=== PATIENT | male | born 1965 | race Caucasian/White ===

== ENCOUNTER 2025-03-10 10:10 | Observation (INO) | payer BC, SELFPAY ==
[2025-03-10] VITALS (14 sets, daily range): BP systolic 127–155; BP diastolic 59–96; BMI 40.0; BMI 38.9
[2025-03-10 08:04] LABS: % Basophils 0.7 % (0-2); % Eosinophils 2.5 % (0-6); % Immature Granulocytes 0.3 % (0-0.5); % Lymphocytes 25.7 % (20.5-51.1); % Monocytes 9.2 % (1.7-9.3); % Neutrophils 61.6 % (42.2-75.2); ALT (SGPT) 18 U/L (0-50); AST (SGOT) 19 U/L (17-59); Absolute Basophils 0.1 10^3/uL (0-0.2); Absolute Eosinophils 0.2 10^3/uL (0-0.7); Absolute Monocytes 0.7 10^3/uL (0.1-0.6); Absolute Neutrophils 4.7 10^3/uL (1.4-6.5); Albumin 4.2 g/dl (3.5-5.0); Alkaline Phosphatase 76 U/L (38-126); Blood Urea Nitrogen 19 mg/dl (9-20); Calcium 8.8 mg/dl (8.4-10.2); Carbon Dioxide 20 mmol/L (22-30); Chloride 111 mmol/L (98-107); Estimated Creatinine Clearance > 125 ml/min; Glucose 169 mg/dl (70-99); Hematocrit 24.6 % (39.0-52.0); Hemoglobin 6.6 g/dL (13.0-18.0); Mean Corp Hgb Conc. 26.8 g/dL (33.0-37.0); Mean Corpuscular Hgb 17.5 pg (27.0-31.0); Mean Corpuscular Volume 65.1 fL (80.0-94.0); Mean Platelet Volume 10.1 fL (7.4-10.4); Nucleated Red Blood Cells % 0.4 % (-); Platelet Count 277 10^3/uL (130-400); Potassium 4.1 mmol/L (3.5-5.1); Red Blood Cell Count 3.78 10^6/uL (4.70-6.10); Red Cell Dist. Width 20.7 % (11.5-14.5); Sodium 142 mmol/L (135-145); Total Protein 6.7 g/dl (6.3-8.2); White Blood Cell Count 7.6 10^3/uL (4.8-10.8); eGFR > 60.00
[2025-03-10 08:15] LABS: Troponin I < 0.012 ng/ml
[2025-03-10 08:22] LABS: Anisocytosis 1+; Normal RBC Morphology No
[2025-03-10 08:23] LABS: Hypochromasia 1+; Ovalocytes Slight
--- NOTE | 2025-03-10 08:47 | ED.GENMED ---
History of Present Illness
<Farhan Cruz PA-C - Last Filed: 03/10/25 12:15>
General
Chief Complaint: Breathing Problem
Source: patient
Time Seen by Provider: 03/10/25 08:16
History of Present Illness
History of Present Illness:
59-year-old male with past medical history of insulin-dependent diabetes, recently treated for a left lower lobe pneumonia presenting to the emergency department for gradually worsening exertional dyspnea over the last month companied with
intermittent chest discomfort with both symptoms resolving at rest. Patient notes that he has had intermittent bright red blood intermixed with his stool which he has had often but this was attributed to hemorrhoidal bleed. Patient states no other
symptoms and at this time is asymptomatic. Currently denying any shortness of breath, lightheadedness, dizziness, syncopal episodes, abdominal pain, nausea, vomiting, abnormal bruising, fevers or infectious symptoms, abnormal weight loss or gain.
Social history noncontributory. 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 He notes that 4 years ago he had a colonoscopy for the first time, no abnormalities found, scheduled to undergo his next colonoscopy within the next few
weeks.
Past History
<Farhan Cruz PA-C - Last Filed: 03/10/25 12:15>
Past History
ED Past Medical History: IDDM
ED Past Surgical History: Orthopedic and Other
Social History
Tobacco: Non-smoker
Alcohol: None
Drug: None
Living: alone
Review of Systems
<Farhan Cruz PA-C - Last Filed: 03/10/25 12:15>
Review of Systems
All Other Systems: ROS reviewed and negative except as documented in HPI and ROS
Phy Exam
<Farhan Cruz PA-C - Last Filed: 03/10/25 12:15>
Physical Exam
Physical Exam:
GENERAL: Alert , in no apparent distress
EYE: clear conjunctiva b/l
HEAD: NCAT
ENT: o/p clr, mmm.
CARDIAC: Regular rate and rhythm .
LUNGS: Clear breath sounds bilaterally, no acute respiratory distress, no wheezes/rales/rhonchi
ABDOMEN: Soft, without focal tenderness, no r/g, no cvat
RECTAL EXAM: Light brown stool, heme-negative
NEUROLOGICAL: Alert and oriented
SKIN: Warm and dry, skin intact.
MUSCULOSKELETAL: No edema, well perfused.
PSYCH: Normal and appropriate interaction.
Scores
<Farhan Cruz PA-C - Last Filed: 03/10/25 12:15>
Heart Failure Risk
Heart Failure Risk Score: Not Applicable
Heart Score for Chest Pain Patients
STEMI patient?: Not applicable
Withdrawal Assessment of Alcohol
Withdrawal Assessment Completed?: Not applicable
Course
<Farhan Cruz PA-C - Last Filed: 03/10/25 12:15>
Orders/Labs/Results
Orders:
Orders
03/10/25 07:36
EKG [Electrocardiogram (*1)] Urgent
Reason for Study: Chest Pain
EKG- Treatment ONCE
CR Chest - 2 Views Urgent
Comment:
Reason For Exam: suspected infection
03/10/25 07:41
Complete Blood Count/With Diff Urgent
Comprehensive Metabolic Panel Urgent
Ferritin Urgent
Folate Urgent
Iron Urgent
Reticulocyte Count Urgent
Total Iron Binding Urgent
Troponin I Urgent
03/10/25 08:14
Type+Screen Urgent
03/10/25 08:43
Blood Bank Products [* Blood Bank Products] Urgent
Blood Bank Products: *Packed RBC Leuko(PRBC's)
Quantity: 2
Transfuse Today: Yes
Reason: Anemia
03/10/25 08:52
ABO2 Urgent
BBK Wristband Number:
Associate notified that ABO2 has been ordered: HERRERA-ER
Date: 03/10/25
Time: 08:29
Water Regulator And Valve Repairer ID: [id number]
03/10/25 09:07
Add On- LAB Urgent
Tests Added?: ferritin, iron, TIBC, %sat, B12, folate, retic count
03/10/25 09:39
Admit/Transfer Patient As Directed
Co-Sign Provider:
Level of Care: Observation services
Assign to:: Telemetry
Physician / Group: hospitalist-Kirsten
Diagnosis: chest pressure--anemia
Reason for Telemetry: Chest Pain syndromes
Date to Stop Telemetry: 03/12/25
Time to Stop Telemetry: 11:00
03/10/25 09:40
PRN Pain Medication Management As Directed
May give lesser potent ordered pain med per pt: Yes
preference::
Protocol:: Medication orders for pain may be administered in a
manner that supports deferring to patient preference
when the pt is:
- Requesting an ordered lesser potent pain medication.
Least to most potent pain medications are defined
as: acetaminophen < NSAID < tramadol < opioids
(morphine, oxycodone, hydromorphone).
- Requesting a lesser dose of the same medication IF
ORDERED.
- Requesting a less intrusive route of administration
if both routes are prescribed by the provider (PO <
IV).
03/10/25 09:42
Code Status As Directed
Resuscitation Status: Full Code
03/10/25 Lunch
2000 calorie (17 carb) Diabetic
At Your Request: Full Participation
Does patient need a safe tray?: No
Pantoprazole [Protonix] 40 mg PO DAILY
03/10/25 11:20
Electrocardiogram (*1) Q6H
Reason for Study: Chest Pain
Comment: at admission and Q3H for total of 3, to be done with each troponin
Dextrose 50%-Water [Dextrose 50% Syringe] 12.5 grams IV [id number] PRN
FOLic ACID [Folvite] 1 mg PO DAILY
Furosemide [Lasix] 40 mg PO BID
Glucagon [GlucaGen] 1 mg IM PRN PRN
Lisinopril [Zestril] 20 mg PO DAILY
METFORMIN HCl [Glucophage] 1,000 mg PO BID AT 0800,1700
03/10/25 11:20
CARDIOLOGY CONSULT Routine
Consulting Provider: Philomena Lassiter
Was physician already notified: Yes
Activity As Directed
Activity Level: Out of Bed-Early Mobility
Bedside Glucose Monitoring As Directed
Frequency: AC&HS
Additional Instructions:: Change to q6h if pt on TPN, tube feeding or not eating
INT (Intravenous Needle Therapy) As Directed
Comment: maintain peripheral IV access
Intake/ Output As Directed
Frequency: Per unit guidelines
Pneumatic Compression Sleeves As Directed
Type: Knee high
Vital Signs As Directed
Frequency: q4h
Weight As Directed
Frequency: Daily
DX Deep Vein Thrombosis Video Routine
03/10/25 11:30
Insulin Aspart Corrective Mod [Novolog Flexpen-Moderate Resistance] See Protocol SC AC
03/10/25 11:37
Glycohemoglobin (HgbA1c) Routine
Troponin I Q3H
Comment: at admit & Q3H for 3 total including ED draws, obtain ECG with each level
03/10/25 11:45
Dapagliflozin [Farxiga] 10 mg PO DAILY
03/10/25 14:20
Troponin I Q3H
Comment: at admit & Q3H for 3 total including ED draws, obtain ECG with each level
03/10/25 17:20
Electrocardiogram (*1) Q6H
Reason for Study: Chest Pain
Comment: at admission and Q3H for total of 3, to be done with each troponin
Troponin I Q3H
Comment: at admit & Q3H for 3 total including ED draws, obtain ECG with each level
03/10/25 22:00
insulin glargine [Lantus Solostar U-100 Insulin] 26 unit SC HS
03/10/25 23:20
Electrocardiogram (*1) Q6H
Reason for Study: Chest Pain
Comment: at admission and Q3H for total of 3, to be done with each troponin
03/11/25 06:00
Cardiovascular Evaluation IN AM
Complete Blood Count/No Diff IN AM
Comprehensive Metabolic Panel IN AM
Glycohemoglobin (HgbA1c) IN AM
03/11/25 08:00
Rosuvastatin Calcium [Crestor] 10 mg PO DAILY
03/12/25 11:00
DC Protocol for Telemetry ONCE
Abnormal Lab Results
03/10/25 03/10/25
07:41 08:14
RBC 3.78 L 10^6/uL
(4.70-6.10)
Hgb 6.6 L* g/dL
(13.0-18.0)
Hct 24.6 L %
(39.0-52.0)
MCV 65.1 L fL
(80.0-94.0)
MCH 17.5 L pg
(27.0-31.0)
MCHC 26.8 L g/dL
(33.0-37.0)
RDW 20.7 H %
(11.5-14.5)
Absolute Monos (auto) 0.7 H 10^3/uL
(0.1-0.6)
Chloride 111 H mmol/L
(98-107)
Carbon Dioxide 20 L mmol/L
(22-30)
Glucose 169 H mg/dl
(70-99)
Ferritin 3.7 L ng/ml
(17.9-464.0)
Crossmatch IS Only See Detail
03/10/25 07:41
03/10/25 07:41
Vital Signs
Initial and Last Documented VS:
Initial Vital Signs
Pulse
90
03/10/25 07:31
Last Documented Vital Signs
Temp Pulse Resp BP Pulse Ox
98.4 F 89 18 138/77 97
03/10/25 12:11 03/10/25 12:11 03/10/25 12:11 03/10/25 12:11 03/10/25 12:11
<Hiram Wang, DO - Last Filed: 03/10/25 08:54>
Orders/Labs/Results
Orders:
Orders
03/10/25 07:36
EKG [Electrocardiogram (*1)] Urgent
Reason for Study: Chest Pain
EKG- Treatment ONCE
CR Chest - 2 Views Urgent
Comment:
Reason For Exam: suspected infection
03/10/25 07:41
Complete Blood Count/With Diff Urgent
Comprehensive Metabolic Panel Urgent
Ferritin Urgent
Folate Urgent
Iron Urgent
Reticulocyte Count Urgent
Total Iron Binding Urgent
Troponin I Urgent
03/10/25 08:14
Type+Screen Urgent
03/10/25 08:43
Blood Bank Products [* Blood Bank Products] Urgent
Blood Bank Products: *Packed RBC Leuko(PRBC's)
Quantity: 2
Transfuse Today: Yes
Reason: Anemia
03/10/25 08:52
ABO2 Urgent
BBK Wristband Number:
Associate notified that ABO2 has been ordered: HERRERA-ER
Date: 03/10/25
Time: 08:29
Water Regulator And Valve Repairer ID: [id number]
03/10/25 09:07
Add On- LAB Urgent
Tests Added?: ferritin, iron, TIBC, %sat, B12, folate, retic count
03/10/25 09:39
Admit/Transfer Patient As Directed
Co-Sign Provider:
Level of Care: Observation services
Assign to:: Telemetry
Physician / Group: hospitalist-Kirsten
Diagnosis: chest pressure--anemia
Reason for Telemetry: Chest Pain syndromes
Date to Stop Telemetry: 03/12/25
Time to Stop Telemetry: 11:00
03/10/25 09:40
PRN Pain Medication Management As Directed
May give lesser potent ordered pain med per pt: Yes
preference::
Protocol:: Medication orders for pain may be administered in a
manner that supports deferring to patient preference
when the pt is:
- Requesting an ordered lesser potent pain medication.
Least to most potent pain medications are defined
as: acetaminophen < NSAID < tramadol < opioids
(morphine, oxycodone, hydromorphone).
- Requesting a lesser dose of the same medication IF
ORDERED.
- Requesting a less intrusive route of administration
if both routes are prescribed by the provider (PO <
IV).
03/10/25 09:42
Code Status As Directed
Resuscitation Status: Full Code
03/10/25 Lunch
2000 calorie (17 carb) Diabetic
At Your Request: Full Participation
Does patient need a safe tray?: No
Pantoprazole [Protonix] 40 mg PO DAILY
03/10/25 11:20
Electrocardiogram (*1) Q6H
Reason for Study: Chest Pain
Comment: at admission and Q3H for total of 3, to be done with each troponin
Dextrose 50%-Water [Dextrose 50% Syringe] 12.5 grams IV [id number] PRN
FOLic ACID [Folvite] 1 mg PO DAILY
Furosemide [Lasix] 40 mg PO BID
Glucagon [GlucaGen] 1 mg IM PRN PRN
Lisinopril [Zestril] 20 mg PO DAILY
METFORMIN HCl [Glucophage] 1,000 mg PO BID AT 0800,1700
03/10/25 11:20
CARDIOLOGY CONSULT Routine
Consulting Provider: Philomena Lassiter
Was physician already notified: Yes
Activity As Directed
Activity Level: Out of Bed-Early Mobility
Bedside Glucose Monitoring As Directed
Frequency: AC&HS
Additional Instructions:: Change to q6h if pt on TPN, tube feeding or not eating
INT (Intravenous Needle Therapy) As Directed
Comment: maintain peripheral IV access
Intake/ Output As Directed
Frequency: Per unit guidelines
Pneumatic Compression Sleeves As Directed
Type: Knee high
Vital Signs As Directed
Frequency: q4h
Weight As Directed
Frequency: Daily
DX Deep Vein Thrombosis Video Routine
03/10/25 11:30
Insulin Aspart Corrective Mod [Novolog Flexpen-Moderate Resistance] See Protocol SC AC
03/10/25 11:37
Glycohemoglobin (HgbA1c) Routine
Troponin I Q3H
Comment: at admit & Q3H for 3 total including ED draws, obtain ECG with each level
03/10/25 11:45
Dapagliflozin [Farxiga] 10 mg PO DAILY
03/10/25 14:20
Troponin I Q3H
Comment: at admit & Q3H for 3 total including ED draws, obtain ECG with each level
03/10/25 17:20
Electrocardiogram (*1) Q6H
Reason for Study: Chest Pain
Comment: at admission and Q3H for total of 3, to be done with each troponin
Troponin I Q3H
Comment: at admit & Q3H for 3 total including ED draws, obtain ECG with each level
03/10/25 22:00
insulin glargine [Lantus Solostar U-100 Insulin] 26 unit SC HS
03/10/25 23:20
Electrocardiogram (*1) Q6H
Reason for Study: Chest Pain
Comment: at admission and Q3H for total of 3, to be done with each troponin
03/11/25 06:00
Cardiovascular Evaluation IN AM
Complete Blood Count/No Diff IN AM
Comprehensive Metabolic Panel IN AM
Glycohemoglobin (HgbA1c) IN AM
03/11/25 08:00
Rosuvastatin Calcium [Crestor] 10 mg PO DAILY
03/12/25 11:00
DC Protocol for Telemetry ONCE
Abnormal Lab Results
03/10/25 03/10/25
07:41 08:14
RBC 3.78 L 10^6/uL
(4.70-6.10)
Hgb 6.6 L* g/dL
(13.0-18.0)
Hct 24.6 L %
(39.0-52.0)
MCV 65.1 L fL
(80.0-94.0)
MCH 17.5 L pg
(27.0-31.0)
MCHC 26.8 L g/dL
(33.0-37.0)
RDW 20.7 H %
(11.5-14.5)
Absolute Monos (auto) 0.7 H 10^3/uL
(0.1-0.6)
Chloride 111 H mmol/L
(98-107)
Carbon Dioxide 20 L mmol/L
(22-30)
Glucose 169 H mg/dl
(70-99)
Ferritin 3.7 L ng/ml
(17.9-464.0)
Crossmatch IS Only See Detail
03/10/25 07:41
03/10/25 07:41
Vital Signs
Initial and Last Documented VS:
Initial Vital Signs
Pulse
90
03/10/25 07:31
Last Documented Vital Signs
Temp Pulse Resp BP Pulse Ox
98.4 F 89 18 138/77 97
03/10/25 12:11 03/10/25 12:11 03/10/25 12:11 03/10/25 12:11 03/10/25 12:11
<Farhan Cruz PA-C - Last Filed: 03/10/25 12:15>
MDM/Problems Addressed
Differential Diagnosis Includes:
Hemorrhoidal bleeding, lower versus upper GI bleeding, malignancy, stable angina versus NSTEMI
MDM/Problems Addressed:
59-year-old male presenting to the emergency department for evaluation of exertional dyspnea that has been gradually worsening over the last month, notes intermittent chest discomfort during this with all symptoms resolving shortly after he rests.
Initial labs noted for hemoglobin of 6.6, MCV 65 signifying microcytic anemia, concern for iron deficiency anemia secondary to bleeding, stool currently heme-negative. 2 units packed red blood cells ordered. Patient otherwise hemodynamically well.
Plan for admission. I did review patient's labs from outpatient workup, unfortunately he has not had a CBC since December 2022 which at that time showed a hemoglobin of 11.2.
<Farhan Cruz PA-C - Last Filed: 03/10/25 12:15>
*Radiology
Radiology exam reviewed: preliminary read by ED provider (Normal chest x-ray)
*Pulse Oximetry
Patient hypoxic: no
*EKG
Heart Rate: 84
Rate: normal
Rhythm: sinus
QRS Pattern: right bundle branch block
*Excel Analyst Interpretation
Rate: normal
Rhythm: sinus
*Critical Care Note
Total Time (30-74mins, 75-104mins- exclusive of procedures): 30
comment:
Critical care statement: A total of 30 minutes of critical care time was provided for this patient. This includes management of unstable vital signs, evaluation of the patient at bedside, reviewing the patient's pertinent medical records, discussion
with consultants, review of old EKGs and review of pertinent medical records. This time with separate from time utilized to perform the aforementioned documented procedures
Data Reviewed
Review of Other/Old Records Reveals: Labs and Records
<Farhan Cruz PA-C - Last Filed: 03/10/25 12:15>
Patient Management
Discussion with other providers: Hospitalist and Automation And Control Engineer
Escalation/DeEscalation of care consider admission/obs:
Hospitalist team notified and accepts for continued evaluation and treatment. GI team was also notified for consultation.
ED Attending Note
<Farhan Cruz PA-C - Last Filed: 03/10/25 12:15>
-
Portions of this chart may have been created with voice recognition software.� Occasional wrong word or��sound alike� substitutions may have occurred due to the inherent limitations of voice recognition software.
<Hiram Wang DO - Last Filed: 03/10/25 08:54>
ED Attending Note
Patient seen and examined by attending physician: Yes
I performed the substantive portion of visit, reviewed & personally made and approve the management plan that is documented in note by myself or RADHA.: Yes
ED Attending Note:
I have seen and evaluated the patient with a [id number] encounter. I have spoken to the advance practicer provider and involved in the medical history, the physical exam, medical decision making.
Evaluation and management service: agree unless noted differently below.
Results interpretation: agree unless noted differently below.
Focused HPI: 59-year-old male presenting with exertional dyspnea. Patient denies any current chest pain or shortness of breath.
Physical exam: Sitting bed comfortably. No acute distress
Medical Decision Making: Blood work shows anemia. He states that he has had intermittent rectal bleeding but blames this on hemorrhoids. Given the symptomatic anemia, will admit. Will consent for 2 units of blood
Discharge Plan
Departure
Patient Disposition: Admit
Date of Disposition: 03/10/25
Time of Disposition: 08:49
Presentation/result/management discussed w/ accepting MD/DO: Hospitalist
Discharge Problem:
Anemia, New onset right bundle branch block (RBBB)
Interventions
Interventions:
*Risk Screen - Suicide Last Done: 03/10/25 08:30
*General Assessment Last Done: 03/10/25 08:30
*Neglect/Abuse Screening Last Done: 03/10/25 08:30
*ED- Fall Risk Assessment Last Done: 03/10/25 08:30
*ED COVID-19 Vaccine History Last Done: 03/10/25 11:56
*Nursing Disposition Last Done: 03/10/25 11:00
ED- Cardiac Assessment Last Done: 03/10/25 08:30
ED- Pulmonary Assessment Last Done: 03/10/25 08:30
Discharge Date and Time
Discharge Date/Time: 03/10/25 11:00
--- NOTE | 2025-03-10 09:24 | CON.GI ---
Consultation
-
Date/Time Consultation Requested: 03/10/25 0825
Date/Time Consultation Performed: 03/07/25 0900
Requesting Provider: VLADIMIR Navas
Performing Provider: Dr. Barroso/LIZ Reynolds
Reason for Consultation: symptomatic anemia
Medical History
Chief Complaint / HPI
Chief Complaint: HERRERA
History of Present Illness:
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
emergency room with couple month history of dyspnea on exertion as well as chest pressure. Asked to evaluate symptomatic anemia and for hemoglobin of 6.6. The patient has a history of gastric bypass in 2007. He is also on ibuprofen 800 mg twice
daily for many years for his history of rheumatoid arthritis. He has a chronic history of anemia ever since his gastric bypass with his last hemoglobin being 11.3 in December 2022. He has not had labs since that time. The patient has had endoscopy
and colonoscopy in the past (5 yrs ago) with [facility] and is due for repeat this April. He states the endoscopy and colonoscopy were negative however, the patient states he is supposed to have in 5 years secondary to suboptimal prep. He states
that he did a 3-day prep at that time and this time is going to be a 5-day prep. He has no family history of gastrointestinal malignancy or IBD. He does have a history of intermittent bright red blood per rectum upon wiping. The patient has no
heartburn or indigestion. He does not take a PPI. He is obese and is diabetic. 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
pressure. This resolves when he rests. He denies any fevers, chills, nausea, vomiting, melena, hematochezia, dysphagia or odynophagia. No early satiety or unintentional weight loss. The bright red blood is only upon wiping. He never sees any
blood coating the stool or mixed in with the stool.
Past Medical History
Past Medical History: Other (Insulin-dependent diabetes, rheumatoid arthritis, hypertension, hyperlipidemia, left lower lobe pneumonia)
Past Surgical History: Other (Orthopedic surgery, gastric bypass)
Social History
Tobacco: Non-Smoker
Alcohol: None
Drug: None
Employment: Employed
Family History
Family History: Other (No family history of gastrointestinal malignancy or IBD)
Allergies / Home Medications
Allergy/AdvReac Type Severity Reaction Status Date / Time
enoxaparin [From Lovenox] Allergy Severe Anaphylaxis Verified 03/10/25 07:27
rosuvastatin [From Crestor] Allergy Severe Unknown Verified 03/10/25 07:27
�Medication �Instructions �Recorded
Enbrel 1 dose IM FR 03/10/25
canagliflozin 300 mg tablet 300 mg PO DAILY 03/10/25
(Invokana)
cholecalciferol (vitamin D3) 10 50,000 unit PO Q14D 03/10/25
mcg (400 unit) capsule (Vitamin D3)
folic acid 1 mg tablet 1 mg PO DAILY 03/10/25
furosemide 40 mg tablet (Lasix) 40 mg PO BID 03/10/25
ibuprofen 800 mg tablet 800 mg PO BID 03/10/25
insulin glargine 100 unit/mL (3 26 unit SC DAILY 03/10/25
mL) subcutaneous pen (Lantus
Solostar U-100 Insulin)
insulin lispro 100 unit/mL 1 sliding scale dose SC TID 03/10/25
subcutaneous cartridge
lisinopril 20 mg tablet 20 mg PO DAILY 03/10/25
metformin 1,000 mg tablet 1,000 mg PO BID 03/10/25
rosuvastatin 10 mg tablet 10 mg PO DAILY 03/10/25
tirzepatide 12.5 mg/0.5 mL 12.5 mg SC QWEEK 03/10/25
subcutaneous pen injector
(Villa)
Review of Systems
-
All other systems: A 12 pt ROS was Negative except as stated above in HPI
Vital Signs
Pulse Resp BP Pulse Ox
81 18 155/67 94
03/10/25 08:30 03/10/25 08:30 03/10/25 08:04 03/10/25 08:30
Physical Exam
Exam
General: No Apparent Distress
HEENT: Anicteric
Respiratory: Clear
Cardiac: Regular Rhythm
GI: Soft, Non Tender, Non Distended and Normal Bowel Sounds
Skin: Warm
Neuro: AO x 3
Psych: Calm
Results
WBC 7.6 10^3/uL (4.8-10.8) 03/10/25 07:41
Hgb 6.6 g/dL (13.0-18.0) L* 03/10/25 07:41
Hct 24.6 % (39.0-52.0) L 03/10/25 07:41
MCV 65.1 fL (80.0-94.0) L 03/10/25 07:41
Plt Count 277 10^3/uL (130-400) 03/10/25 07:41
Absolute Neuts (auto) 4.7 10^3/uL (1.4-6.5) 03/10/25 07:41
Sodium 142 mmol/L (135-145) 03/10/25 07:41
Potassium 4.1 mmol/L (3.5-5.1) 03/10/25 07:41
Chloride 111 mmol/L (98-107) H 03/10/25 07:41
Carbon Dioxide 20 mmol/L (22-30) L 03/10/25 07:41
BUN 19 mg/dl (9-20) 03/10/25 07:41
Creatinine 0.9 mg/dL (0.7-1.3) 03/10/25 07:41
Calcium 8.8 mg/dl (8.4-10.2) 03/10/25 07:41
Total Bilirubin 1.0 mg/dl (0.2-1.3) 03/10/25 07:41
AST 19 U/L (17-59) 03/10/25 07:41
ALT 18 U/L (0-50) 03/10/25 07:41
Alkaline Phosphatase 76 U/L (38-126) 03/10/25 07:41
Diagnostic Image Results:
Prior GI Procedures:
EGD: [facility] ('5 years ago') per patient normal.
Colonoscopy: [facility] ('5 years ago') per patient normal. Patient states needs to be repeated in 5 years secondary to suboptimal prep. Had a 3-day prep at that time. This colonoscopy due in April is supposed to be done with 5-day prep.
Assessment / Plan
-
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
emergency room with couple month history of dyspnea on exertion as well as chest pressure. Asked to evaluate symptomatic anemia and for hemoglobin of 6.6. Patient with history of anemia with last hemoglobin checked in December 2022 and it was 11.
History of gastric bypass. History of ibuprofen 800 mg twice daily. Bright red blood per rectum upon wiping only. Due for repeat endoscopy and colonoscopy however requires a 5-day prep per patient. Also on Mounjaro. Without any current signs of
active bleeding.
Impression:
Symptomatic microcytic anemia, rectal exam brown heme-negative stool
Chest pressure, new right bundle branch block
History of gastric bypass
History of suboptimal colonoscopy prep
Diabetes on GLP-1 and insulin
Plan:
- Given the fact that patient has light brown heme-negative stool, recent GLP-1 injection on Wednesday, need for 5-day prep will plan on transfusion of blood products and watch hemoglobin.
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
- Start pantoprazole 40 mg daily as patient using ibuprofen 800 mg p.o. twice daily. Discussed with patient signs and symptoms of GI bleeding. Patient with history of gastric bypass and at risk for marginal ulcer.
- Chest pressure, with negative troponin x 1. Cardiology being consulted. Patient with history of diabetes, hypertension, hyperlipidemia, obesity.
- Transfuse to keep hemoglobin greater than 8 with patient with chest pressure.
-
-
Thank you for consultation and allowing me to participate in the patient's care. Please call the [facility] consultant GI physician during the after hours with any questions or concerns.
--- NOTE | 2025-03-10 09:46 | HPS.HSE ---
Family Physician
-
Family Physician: Kuldeep Cardoso
Chief Complaint
-
Shortness of breath with exertion
History of Present Illness
Patient is a 59-year-old male with a history of type 2 diabetes mellitus insulin requiring, morbid obesity with gastric bypass, essential hypertension, hyperlipidemia, chronic iron deficiency from the gastric bypass who states that over the past few
months he has been having shortness of breath with exertion. Patient initially described chest pressure with exertion however, he downplays this. 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
feels his heart pounding with increased rate. Prior to the last few months, he states that he could go on a job, come back and then rest. Workup in the emergency department finds him to have a hemoglobin of 6.6. He endorses bright red blood per
rectum but denies black stools, dark stools, melanotic stools. Patient is being brought in as observation.
Medical History
Past Medical History
Past Medical History: Reports Other
Additional Past Medical History:
Gastric bypass with chronic iron deficiency anemia
Morbid obesity
Type 2 diabetes mellitus
Essential hypertension
Hyperlipidemia
Psoriatic and rheumatoid arthritis
Past Surgical History: Reports Other
Additional Past Surgical History:
Gastric bypass surgery
3 hernia repairs, 2 when he was less than 1 years old
Umbilical hernia repair
3 knee surgeries
Deviated septum surgery
Tendon repair left ring finger
Social History
Tobacco: Non-smoker
Alcohol: None
Drug: None
Family History
Family History: Other (Mother and father had diabetes and heart attacks, sister has hypothyroidism and diabetes)
Allergies / Home Medications
Allergies reflects when Allergies were last updated in [facility].
Home Medications with original date entered in [facility]
Allergy/Medication List:
Allergies
Allergy/AdvReac Type Severity Reaction Status Date / Time
enoxaparin [From [employer]] Allergy Severe Anaphylaxis Verified 03/10/25 07:27
rosuvastatin [From Crestor] Allergy Severe Unknown Verified 03/10/25 07:27
Home Medications
Enbrel 1 dose IM FR 03/10/25
canagliflozin 300 mg tablet (Invokana) 300 mg PO DAILY 03/10/25
cholecalciferol (vitamin D3) 10 mcg (400 unit) capsule (Vitamin D3) 50,000 unit PO Q14D 03/10/25
folic acid 1 mg tablet 1 mg PO DAILY 03/10/25
furosemide 40 mg tablet (Lasix) 40 mg PO BID 03/10/25
ibuprofen 800 mg tablet 800 mg PO BID 03/10/25
insulin glargine 100 unit/mL (3 mL) subcutaneous pen (Lantus Solostar U-100 Insulin) 26 unit SC DAILY 03/10/25
insulin lispro 100 unit/mL subcutaneous cartridge 1 sliding scale dose SC TID 03/10/25
lisinopril 20 mg tablet 20 mg PO DAILY 03/10/25
metformin 1,000 mg tablet 1,000 mg PO BID 03/10/25
rosuvastatin 10 mg tablet 10 mg PO DAILY 03/10/25
tirzepatide 12.5 mg/0.5 mL subcutaneous pen injector (Mounjaro) 12.5 mg SC QWEEK 03/10/25
Review of Systems
-
History Source: Patient
Constitutional: Reports No Symptoms
EENT: Reports No Symptoms
Respiratory: Reports Trouble Breathing (With exertion)
Cardiac: Reports Chest Pain (Describes pressure with exertion) and Other (Right bundle branch block is new per patient)
Abdomen/GI: Reports No Symptoms
: Reports No Symptoms
Musculoskeletal: Reports Joint Pain (From arthritis)
Skin: Reports No Symptoms
Neurological: Reports No Symptoms; Denies Dizzy or Weakness
Endocrine: Reports No Symptoms
Hematologic/Lymphatic: Reports Other (Bright red blood per rectum)
Psych: Reports No Symptoms
Physical Exam
Vital Signs
Vital Signs
Pulse Resp BP Pulse Ox
81 18 155/67 94
03/10/25 08:30 03/10/25 08:30 03/10/25 08:04 03/10/25 08:30
Physical Exam
General: Well Developed, Well Nourished, No Apparent Distress and Obese
HEENT: NormoCephalic and Anicteric; No Oxygen
Respiratory: Clear; No Wheezes, Rales or Rhonchi
Cardiac: S1/S2 and Regular Rhythm
GI: Soft, Non Tender, Non Distended and Normal Bowel Sounds
Musculoskeletal: No Clubbing, No Cyanosis and No Edema
Neuro: Awake and Alert
Psych: Calm
Laboratory Results
-
03/10/25 07:41
03/10/25 07:41
Laboratory Results
Total Bilirubin 1.0 mg/dl (0.2-1.3) 03/10/25 07:41
AST 19 U/L (17-59) 03/10/25 07:41
ALT 18 U/L (0-50) 03/10/25 07:41
Alkaline Phosphatase 76 U/L (38-126) 03/10/25 07:41
Troponin I < 0.012 ng/ml 03/10/25 07:41
Impression/Plan
-
Patient is a 59-year-old male
Chest pressure/new right bundle branch block--with exertion--likely due to symptomatic anemia--OBS--trend troponin--first <0.012--consult cardiology--telemetry--serial troponin with EKGs
Symptomatic anemia--likely chronic iron deficiency--possibly from superimposed peptic ulcer disease with ibuprofen use of 800 mg twice daily and a gastric bypass patient--could also be due to chronic iron deficiency from the gastric bypass
itself--we will transfuse 2 units packed red blood cells--check iron, TIBC, percent saturation, ferritin, B12, folate, reticulocyte count--consult GI--patient just injected yesterday with Mounjaro and likely cannot have inpatient EGD colonoscopy
without intubation, patient does not appear to be actively bleeding and that heme check by the ED was negative--fully agree with GI that this can be done as an outpatient with his normal GI team--for now, will transfuse and follow hemoglobin
Obesity status post gastric bypass surgery--patient understands that he is not supposed to take ibuprofen but does anyway--patient certainly at risk for malabsorption--he should follow-up with his normal GI doctors to discuss appropriate vitamin and
supplements needed
Type 2 diabetes mellitus--insulin requiring--will add sliding scale moderate dose, continue Lantus 26 units at bedtime--continue metformin, continue Invokana--patient on 12.5 mg subcutaneously weekly of Mounjaro, just took yesterday on Fridays--hold
for now
Essential hypertension--continue lisinopril
Psoriatic/rheumatoid arthritis--patient just took Enbrel on Wednesday--continue folic acid repletion, continue vitamin D repletion
Hyperlipidemia--continue rosuvastatin (he says that he is allergic to Crestor)--I did inquire that they are the same medication but he is taking rosuvastatin at home
DVT prophylaxis--SCDs
CODE STATUS--full code
Spoke with GI and ED regarding plan of care--patient in agreement to obs status
[2025-03-10] MEDS: PROTONIX 40 MG PO (10:57)
[2025-03-10] MEDS: LASIX 40 MG PO ×2 (11:47→20:00)
[2025-03-10] MEDS: GLUCOPHAGE 1000 MG PO ×2 (11:48→17:02)
[2025-03-10] MEDS: ZESTRIL 20 MG PO (11:48)
[2025-03-10] MEDS: FOLVITE 1 MG PO (11:48)
--- NOTE | 2025-03-10 11:49 | CON.CAR ---
Consultation
Consultation Request
Date/Time Consultation Requested: 03/10/2025
Requesting Provider: Dr. Curtis
Reason for Consultation: Shortness of breath and chest pain
Medical History
-
Chief Complaint: Shortness of breath on exertion
History of Present Illness:
59-year-old male with a history of type 2 diabetes mellitus insulin requiring, morbid obesity with gastric bypass, essential hypertension, hyperlipidemia, chronic iron deficiency from the gastric bypass who states that over the past few months he
has been having shortness of breath with exertion. Patient initially described chest pressure with exertion however, he downplays this. 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 Prior to the last few months, he states that he could go on a job, come back and then rest. Workup in the emergency department finds him to have a hemoglobin of 6.6. He endorses bright red blood per rectum but
denies black stools, dark stools, melanotic stools. Patient is being brought in as observation.
For his exertional chest pain and shortness of breath he has undergone workup at [facility] where he had echo and a stress test. Patient had myocardial perfusion scan done on 12/20/2024 that showed low risk study without any
evidence of myocardial perfusion ischemia with stress.
Past Medical History
Past Medical History: HTN, Hypercholesterolemia, NIDDM and Other (Gastric bypass with chronic iron deficiency anemia, Psoriatic and rheumatoid arthritis, Morbid obesity)
Past Surgical History: Other (Hernia repair x 3, knee surgeries, left ring finger tendon repair, gastric bypass surgery)
Social History
Tobacco: Non-Smoker
Alcohol: None
Drug: None
Family History
Family History: Reviewed & Not Pertinent
Allergies / Home Medications
Allergy/AdvReac Type Severity Reaction Status Date / Time
enoxaparin [From Lovenox] Allergy Severe Anaphylaxis Verified 03/10/25 07:27
rosuvastatin [From Crestor] Allergy Severe Unknown Verified 03/10/25 07:27
�Medication �Instructions �Recorded �Confirmed �Type
Enbrel 1 dose IM FR 03/10/25 03/10/25 History
canagliflozin 300 mg tablet 300 mg PO DAILY 03/10/25 03/10/25 History
(Invokana)
cholecalciferol (vitamin D3) 10 50,000 unit PO Q14D 03/10/25 03/10/25 History
mcg (400 unit) capsule (Vitamin D3)
folic acid 1 mg tablet 1 mg PO DAILY 03/10/25 03/10/25 History
furosemide 40 mg tablet (Lasix) 40 mg PO BID 03/10/25 03/10/25 History
ibuprofen 800 mg tablet 800 mg PO BID 03/10/25 03/10/25 History
insulin glargine 100 unit/mL (3 26 unit SC DAILY 03/10/25 03/10/25 History
mL) subcutaneous pen (Lantus
Solostar U-100 Insulin)
insulin lispro 100 unit/mL 1 sliding scale dose SC TID 03/10/25 03/10/25 History
subcutaneous cartridge
lisinopril 20 mg tablet 20 mg PO DAILY 03/10/25 03/10/25 History
metformin 1,000 mg tablet 1,000 mg PO BID 03/10/25 03/10/25 History
rosuvastatin 10 mg tablet 10 mg PO DAILY 03/10/25 03/10/25 History
tirzepatide 12.5 mg/0.5 mL 12.5 mg SC QWEEK 03/10/25 03/10/25 History
subcutaneous pen injector
([place])
Review of Systems
-
All other systems: Negative unless noted
Physical Exam
Vital Signs
Pulse Resp BP Pulse Ox
89 18 138/72 97
03/10/25 11:47 03/10/25 08:30 03/10/25 11:47 03/10/25 08:30
Lab Results
03/10/25 07:41
03/10/25 07:41
Troponin I < 0.012 ng/ml 03/10/25 07:41
Physical Exam
General: Well Developed, Well Nourished and Comfortable
HEENT: Normocephalic, Anicteric and Moist Mucous Membranes
Respiratory: Clear and Non Labored Respirations; Negative Crackles or Rhonchi
Cardiac: S1/S2 and Regular Rhythm; Negative Murmur
GI: Soft, Non Tender and Non Distended
Musculoskeletal: No Clubbing, No Cyanosis and No Edema
Skin: Warm and Dry
Neuro: Awake, Alert, Oriented, AO x 3 and No Motor Deficits
Psych: Calm
Impression / Plan
-
59-year-old gentleman with a history of hypertension, morbid obesity, type 2 diabetes mellitus, psoriatic and rheumatoid arthritis, with dyspnea on exertion with recent cardiac stress test showing no sign of myocardial ischemia presented with severe
anemia with lydia bright red blood per rectum.
Dyspnea on exertion
- Dyspnea on exertion is likely related to his severe anemia
- Anemia workup as per primary care provider.
- Gastric bypass surgery recently. With bright red blood per rectum with brown stools on rectal exam in the ER.
- Possible chronic hemorrhoidal bleed.
- Workup as per primary team and GI
- If patient still here on Wednesday, will obtain an echo.
- Serial troponin to rule out any acute coronary syndrome.
Severe anemia
- Unclear etiology workup as per primary team.
Data Reviewed
-
EKG: Report Reviewed by me, Discussed with Patient and Discussed with Family
Medical Tests (Nuc Med, Echo etc): Report Reviewed by me and Discussed with Patient
Labs: Labs Reviewed by me
Old Records: Reviewed
[2025-03-10 11:59] LABS: Ferritin 3.7 ng/ml (17.9-464.0)
[2025-03-10 12:04] LABS: Glucose - Point of Care 144 mg/dl (70-99)
[2025-03-10] MEDS: NOVOLOG FLEXPEN-MODERATE RESISTANCE SC ×2 (12:06→17:36)
[2025-03-10 12:14] LABS: Troponin I < 0.012 ng/ml
[2025-03-10 12:30] LABS: Folate 18.4 ng/ml (2.76-20)
[2025-03-10 12:31] LABS: Glycohemoglobin (HgbA1c) 6.5 % (4.0-5.6)
[2025-03-10] MEDS: NON-FORMULARY ITEM 300 MG PO (13:06)
--- NOTE | 2025-03-10 13:07 | PTCARENOTE ---
Pt. own invokana in [employer] drawer.
[2025-03-10 13:26] LABS: Iron 24 ug/dl (49-181); Percent Saturation 5 % (20-50); Total Iron Binding Capacity 420 ug/dl (261-462)
[2025-03-10 15:36] LABS: Troponin I < 0.012 ng/ml
[2025-03-10 17:29] LABS: Glucose - Point of Care 164 mg/dl (70-99)
[2025-03-10 18:01] LABS: Troponin I < 0.012 ng/ml
[2025-03-10 21:11] LABS: Glucose - Point of Care 111 mg/dl (70-99)
[2025-03-11 03:35] VITALS: BP 111/51
[2025-03-11 06:00] VITALS: BMI 38.2
[2025-03-11 07:05] VITALS: BP 118/63
[2025-03-11 07:05] LABS: Glucose - Point of Care 207 mg/dl (70-99)
[2025-03-11] MEDS: FOLVITE 1 MG PO (07:45)
[2025-03-11] MEDS: LASIX 40 MG PO (07:45)
[2025-03-11] MEDS: CRESTOR 10 MG PO (07:45)
[2025-03-11] MEDS: ZESTRIL 20 MG PO (07:45)
[2025-03-11] MEDS: PROTONIX 40 MG PO (07:45)
[2025-03-11] MEDS: GLUCOPHAGE 1000 MG PO (07:45)
[2025-03-11] MEDS: NON-FORMULARY ITEM 300 MG PO (07:45)
[2025-03-11] MEDS: NOVOLOG FLEXPEN-MODERATE RESISTANCE 3 UNITS SC (07:48)
--- NOTE | 2025-03-11 08:23 | W.PN.CD ---
Today's Communication / Plan
-
- Stable from cardiovascular point.
- Please call if you have any questions
Impression / Plan
-
59-year-old gentleman with a history of hypertension, morbid obesity, type 2 diabetes mellitus, psoriatic and rheumatoid arthritis, with dyspnea on exertion with recent cardiac stress test showing no sign of myocardial ischemia presented with severe
anemia with lydia bright red blood per rectum.
Dyspnea on exertion
- Dyspnea on exertion is likely related to his severe anemia
- Hemoglobin is better today. Dyspnea on exertion is resolved.
- Anemia workup as per primary care provider.
- Gastric bypass surgery recently. With bright red blood per rectum with brown stools on rectal exam in the ER.
- Possible chronic hemorrhoidal bleed.
- Workup as per primary team and GI
- If patient still here on Wednesday, will obtain an echo.
- Serial troponin shows no sign of troponin leak.
Severe anemia
- Unclear etiology workup as per primary team.
- Possible outpatient workup
Physical Exam
Vital Signs/Labs
Vital Signs
Temp Pulse Resp BP Pulse Ox
97.7 F 84 20 118/63 98
03/11/25 07:05 03/11/25 07:45 03/11/25 07:05 03/11/25 07:45 03/11/25 07:05
03/10/25 03/11/25 03/12/25
06:59 06:59 06:59
Actual Weight 138.544 kg
LAB Results
03/10/25 03/10/25 03/10/25
07:41 11:37 14:47
Troponin I < 0.012 < 0.012 < 0.012
03/10/25
17:28
Troponin I < 0.012
Physical Exam
Constitutional: No acute distress and Comfortable
EENT: Anicteric and Moist mucous membranes
Cardiovascular: Rhythm & rate is regular, Pedal edema is absent and JVD pressure is normal
Respiratory: Respiratory effort normal and Lungs clear to auscul.
GI: Soft, Non tender and Normal bowel sounds
Neuro/Psych: Alert, Oriented and AO x 3
Data Reviewed
-
Date of Service: March 11, 2025
Medical Decision Making: Reviewed Test Results, Test Interpretation and Review of Case with other Provider
EKG: Tracing Personally Visualized and interpreted
Labs: Labs Reviewed by me
Old Records: Reviewed
[2025-03-11 08:25] LABS: Hematocrit 30.2 % (39.0-52.0); Hemoglobin 8.6 g/dL (13.0-18.0); Mean Corp Hgb Conc. 28.5 g/dL (33.0-37.0); Mean Corpuscular Hgb 19.1 pg (27.0-31.0); Platelet Count 253 10^3/uL (130-400); Red Blood Cell Count 4.51 10^6/uL (4.70-6.10); Red Cell Dist. Width 23.2 % (11.5-14.5); White Blood Cell Count 8.3 10^3/uL (4.8-10.8)
[2025-03-11 08:37] LABS: ALT (SGPT) 18 U/L (0-50); AST (SGOT) 22 U/L (17-59); Albumin 4.3 g/dl (3.5-5.0); Alkaline Phosphatase 81 U/L (38-126); Blood Urea Nitrogen 21 mg/dl (9-20); Calcium 8.6 mg/dl (8.4-10.2); Carbon Dioxide 22 mmol/L (22-30); Chloride 106 mmol/L (98-107); Estimated Creatinine Clearance > 125 ml/min; Glucose 154 mg/dl (70-99); HDL Cholesterol 40 mg/dl; LDL Cholesterol, Calculated 57 mg/dl; Potassium 4.2 mmol/L (3.5-5.1); Sodium 140 mmol/L (135-145); Total Bilirubin 2.5 mg/dl (0.2-1.3); Total Cholesterol 127 mg/dl (50-199); Total Protein 6.9 g/dl (6.3-8.2); Triglyceride 152 mg/dl (10-149); Very Low Density Lipoprotein 30 mg/dl (0-30); eGFR > 60.00
--- NOTE | 2025-03-11 10:54 | W.PN.HOSP.TC ---
Today's Communication/Plan
-
transfuse last uint pRBC then OK for d/c
Assessment / Plan
Assessment / Plan
pt is a 59 year old male
Chest pressure/new right bundle branch block--with exertion--likely due to symptomatic anemia--OBS--trend troponin, neg x 3--apprec cardiology
Symptomatic anemia--likely chronic iron deficiency (ferritin 3.7 and % sat 5)--possibly from superimposed peptic ulcer disease with ibuprofen use of 800 mg twice daily and a gastric bypass patient--could also be due to chronic iron deficiency from
the gastric bypass itself-- transfuse 3 units packed red blood cells (last one now prior to d/c)--apprec GI--patient just injected yesterday with Mounjaro and likely cannot have inpatient EGD colonoscopy without intubation, patient does not appear
to be actively bleeding and that heme check by the ED was negative--fully agree with GI that this can be done as an outpatient with his normal GI team--for now, will transfuse and follow hemoglobin--need to start back on iron supplements
Obesity status post gastric bypass surgery--patient understands that he is not supposed to take ibuprofen but does anyway--patient certainly at risk for malabsorption--he should follow-up with his normal GI doctors to discuss appropriate vitamin and
supplements needed
Type 2 diabetes mellitus--insulin requiring--will add sliding scale moderate dose, continue Lantus 26 units at bedtime--continue metformin, continue Invokana--patient on 12.5 mg subcutaneously weekly of Mounjaro, just took yesterday on Fridays--hold
for now
Essential hypertension--continue lisinopril
Psoriatic/rheumatoid arthritis--patient just took Enbrel on Wednesday--continue folic acid repletion, continue vitamin D repletion
Hyperlipidemia--continue rosuvastatin (he says that he is allergic to Crestor)--I did inquire that they are the same medication but he is taking rosuvastatin at home
DVT prophylaxis--SCDs
CODE STATUS--full code
Anticipated Discharge: Today
Subjective/Interval History
-
Date of Service: March 11, 2025
pt does not know if he feels better since he has not exerted himself
Objective Data
-
Labs:
Laboratory Results
03/11/25
05:58
WBC 8.3
Hgb 8.6 L D
Hct 30.2 L
Plt Count 253
Sodium 140
Potassium 4.2
Chloride 106
Carbon Dioxide 22
BUN 21 H
Creatinine 0.9
Glucose 154 H
Calcium 8.6
Total Bilirubin 2.5 H D
AST 22
ALT 18
Alkaline Phosphatase 81
Vital Signs:
max temp for 24 hours
03/10/25
17:35
Temp 98.6 F
Vital Signs
Temp Pulse Resp BP Pulse Ox
97.7 F 84 20 118/63 98
03/11/25 07:05 03/11/25 07:45 03/11/25 07:05 03/11/25 07:45 03/11/25 07:05
I&O
03/10/25 03/11/25 03/12/25
06:59 06:59 06:59
Intake Total 2440 / 2440 600 / 600
Balance 2440 / 2440 600 / 600
Review of Systems
-
All other systems: Reviewed and negative
Physical Exam
-
General: Well Developed, Well Nourished and No Apparent Distress
HEENT: Normocephalic and Atraumatic
Respiratory: Clear to Auscultation; Negative Wheezes or Rhonchi
Cardiac: Regular Rhythm and S1/S2; Negative Murmur
GI: Soft, Nontender, Nondistended and Normal Bowel Sounds
Musculoskeletal: No Clubbing, No Cyanosis and No Edema
Neuro: Awake
[2025-03-11 11:28] VITALS: BP 133/58
[2025-03-11 11:42] LABS: Glucose - Point of Care 263 mg/dl (70-99)
[2025-03-11] MEDS: NOVOLOG FLEXPEN-MODERATE RESISTANCE 5 UNITS SC (11:42)
[2025-03-11 11:50] VITALS: BP 119/67
--- NOTE | 2025-03-11 13:00 | W.DCSUMMARY ---
Discharge Summary
Discharge Data
Date of Admission: 03/10/25
Date of Discharge: 03/11/25
-
Pending Results: No
Hospital Course
Primary care physician : Kuldeep Cardoso
Principal Discharge diagnosis : Chest pressure with new right bundle branch block, symptomatic iron deficiency anemia
Chronic Discharge diagnosis : Obesity status post gastric bypass surgery, type 2 diabetes mellitus, essential hypertension, psoriatic/rheumatoid arthritis, hyperlipidemia
Hospital Course : Patient was a 59-year-old male with a history of type 2 diabetes mellitus insulin requiring and morbid obesity status post gastric bypass who stated that over the past few months he was having shortness of breath with exertion. He
initially described chest pressure with exertion however he then downplays this when asked further. 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 Prior to the last
few months, he stated he could go on a job, finish, and then come back and rest. Workup in the emergency department finds him to have a hemoglobin of 6.6. He endorses bright red blood per rectum but denied black stools, dark stools, melanotic
stools. Patient was brought in as observation.
Problem #1: Chest pressure with new right bundle branch block. This was all felt to be due to his symptomatic anemia. His hemoglobin on admission was 6.6. He was seen in consultation by cardiology. Troponins were checked and were negative x 3.
There is no further workup inpatient required.
Problem #2: Symptomatic iron deficiency anemia. Patient's hemoglobin was 6.6 on admission. Iron studies were checked and showed a percent saturation of 5 with a ferritin of 3.7. He is markedly iron deficient. He was seen in consultation by GI.
Patient possibly could have a superimposed peptic ulcer disease because he uses ibuprofen 800 mg twice daily for his arthritis symptoms. He also has gastric bypass and is likely not supposed to be using ibuprofen and likely not absorbing any iron
at this point. He was transfused a total of 3 units of packed red blood cells. Patient takes Mounjaro and just injected the day prior to admission. Because of that, he cannot have EGD or colonoscopy without intubation. Not to mention, that the
patient stated he would need a 5-day prep since a 3-day prep for his last colonoscopy was insufficient. Based on all of this information and the fact that the patient is not actively bleeding, inpatient EGD and colonoscopy were deferred to the
patient's outpatient GI as scheduled in April. He has also been instructed to discuss the proper iron formulation that he should take given his gastric bypass in order to replete his iron stores. He was also started on Protonix as an outpatient
given his ibuprofen use. He has been instructed to stop that.
Problem #3: All other medical issues. These include Obesity status post gastric bypass surgery, type 2 diabetes mellitus, essential hypertension, psoriatic/rheumatoid arthritis, hyperlipidemia. These medical issues were stable during his
hospitalization. Medications were continued as able.
Patient is stable for discharge home at this time. If there are any questions regarding this dictation or his hospital stay, please not hesitate to call. Our office number is [phone].
Time for discharge 35 minutes.
Discharge Plan
-
Patient Disposition: Home (Routine Discharge)
Discharge Diagnosis/Procedures: Chest pressure with new right bundle branch block, symptomatic anemia iron deficient, obesity status post gastric bypass surgery, type 2 diabetes mellitus, essential hypertension, psoriatic/rheumatoid arthritis,
hyperlipidemia
Condition: Good
Diet: As tolerated and Regular
Activity: As tolerated
Driving Restrictions: As prior to admission
Bathing Restrictions: None
Referrals:
Kuldeep Cardoso DO [Family Provider] - in less than 1 week
Additional Discharge Medication Instructions: You are markedly iron deficient.
You will need to start on iron supplements to improve your iron stores in order to make red blood cells.
You will need to discuss with either your primary care physician or your GI doctor the formulation of iron that would be appropriate for you (liquid vs pills).
Prescriptions:
New
pantoprazole 40 mg Tablet,Delayed Release (Dr/Ec)
40 mg PO DAILY Qty: 30 0RF
Continued
furosemide [Lasix] 40 mg Tablet
40 mg PO BID
lisinopril 20 mg Tablet
20 mg PO DAILY
metformin 1,000 mg Tablet
1,000 mg PO BID
folic acid 1 mg Tablet
1 mg PO DAILY
insulin lispro 100 unit/mL Cartridge
1 sliding scale dose SC TID
cholecalciferol (vitamin D3) [Vitamin D3] 10 mcg (400 unit) Capsule
50,000 unit PO Q14D
rosuvastatin 10 mg Tablet
10 mg PO DAILY
insulin glargine [Lantus Solostar U-100 Insulin] 100 unit/mL (3 mL) Insulin Pen
26 unit SC DAILY
Invokana 300 mg Tablet
300 mg PO DAILY
Mounjaro 12.5 mg/0.5 mL Pen Injector
12.5 mg SC QWEEK
Enbrel
1 dose IM FR
Discontinued
ibuprofen 800 mg Tablet
800 mg PO BID
Discharge Orders:
Discharge Patient (As Directed); Ordered 03/11/25
Ordered By: Allie Curtis
Discharge Date and Time
Print Language: LITHUANIAN
[2025-03-11 13:41] VITALS: BP 137/72
== END 2025-03-11 14:22 | disposition home or self-care (01) ==
LOC: 4 EAST ACU 10:10
PROVIDERS: ADMITTING PHYSICIAN Internal Medicine; CONSULT PHYSICIAN Internal Medicine Cardiovascular Disease; EMERGENCY PHYSICIAN Student in an Organized Health Care Education/Training Program; FAMILY PHYSICIAN Family Medicine
DX: R07.89 Other chest pain (principal); R06.02 Shortness of breath; I45.10 Unspecified right bundle-branch block; D50.9 Iron deficiency anemia, unspecified; E11.9 Type 2 diabetes mellitus without complications; K62.5 Hemorrhage of anus and rectum; K64.9 Unspecified hemorrhoids; R06.09 Other forms of dyspnea; E66.01 Morbid (severe) obesity due to excess calories; M06.9 Rheumatoid arthritis, unspecified; E78.00 Pure hypercholesterolemia, unspecified; I10 Essential (primary) hypertension; Z98.84 Bariatric surgery status; Z87.01 Personal history of pneumonia (recurrent); Z79.4 Long term (current) use of insulin; Z79.85 Long-term (current) use of injectable non-insulin antidiabetic drugs; Z79.84 Long term (current) use of oral hypoglycemic drugs; Z79.899 Other long term (current) drug therapy; Z83.3 Family history of diabetes mellitus; Z83.49 Family history of other endocrine, nutritional and metabolic diseases; Z82.49 Family history of ischemic heart disease and other diseases of the circulatory system; Z88.8 Allergy status to other drugs, medicaments and biological substances; Z79.1 Long term (current) use of non-steroidal anti-inflammatories (NSAID); Z87.19 Personal history of other diseases of the digestive system; Z68.38 Body mass index [BMI] 38.0-38.9, adult
CPT/HCPCS: 71046; 80053; 80061; 82728; 82746; 82962; 83036; 83540; 83550; 84484; 85025; 85027; 85045; 86850; 86900; 86901; 86920; 87070; 93005; 99291; G0378; P9016